=== PATIENT | male | born 1945 | race Caucasian/White ===

== ENCOUNTER → 2016-11-08 | Outpatient (CLI) | payer MEDICARE ==
[~2016-11-08] MED LIST: ALENDRONATE SOD70 MG PO; ASPIRIN81 M2 PO; ATORVASTATIN CA40 MG PO; CITALOPRAM HBR40 MG PO; GLIPIZIDE10 MG PO; HYDROCHLOROTHIA25 MG PO; LEVEMIR FL100 UNIT/1 SC; LOSARTAN POTASS50 MG PO; MELATONIN5 M1 PO; METFORMIN HCL1000 MG PO; PROTONIX40 MG PO; VITAMIN B-6100 MG PO; VITAMIN B12-FO1 EACH PO
== END | disposition home or self-care (01) ==
LOC: CDC 09:25
DX: Z01.810 Encounter for preprocedural cardiovascular examination (principal); H25.11 Age-related nuclear cataract, right eye
CPT/HCPCS: 93000

== ENCOUNTER 2017-08-03 15:26 | Emergency (ER) | payer OTHER, MEDICARE ==
[~2017-08-03] VITALS: Ht 154.9 cm; Wt 77.7 kg
[2017-08-03] MEDS ORDERED: PERCOCET 5/31 TABLET PO (17:14)
[2017-08-03 17:37] VITALS: BP 134/58
== END 2017-08-03 17:39 | disposition home or self-care (01) ==
LOC: EME 15:26
DX: S42.292A Other displaced fracture of upper end of left humerus, initial encounter for closed fracture (principal); W00.0XXA Fall on same level due to ice and snow, initial encounter; Y93.K1 Activity, walking an animal; I10 Essential (primary) hypertension; E78.5 Hyperlipidemia, unspecified; E11.9 Type 2 diabetes mellitus without complications; Z79.4 Long term (current) use of insulin; Z79.82 Long term (current) use of aspirin
CPT/HCPCS: 73030; 99281; 99284; J3010